=== PATIENT | female | born 1940 | race Caucasian/White ===

== ENCOUNTER 2018-07-28 12:16 | Inpatient (IN) | payer OTHER ==
[2018-07-28] VITALS (10 sets, daily range): BP systolic 112–129
[~2018-07-28] VITALS: Ht 149.9 cm; Wt 81.2 kg
[2018-07-28] MEDS ORDERED: NITROGLYCERIN 1 INCH (GM) OINT. TP ONE (12:45)
[2018-07-28] MEDS ORDERED: ASPIRIN 81 MG TAB.CHEW PO ONE (12:45)
[2018-07-28 13:24] LABS: BASOPHILS # (AUTO) 0.1 K/uL (0.0-0.2); EOSINOPHILS % (AUTO) 0.4 % (0.0-4.0); MEAN CORPUSCULAR HEMOGLOBIN 30 pg (27-31); MEAN CORPUSCULAR VOLUME 90 fL (79.0-98.0)
[2018-07-28 13:28] LABS: ANION GAP 10 (5-15); CHLORIDE 105 mmol/L (98-107); CREATININE 1.33 mg/dL (0.55-1.30); GLUCOSE 95 mg/dL (70-99); POTASSIUM 4.1 mmol/L (3.5-5.1); SODIUM SERUM 139 mmol/L (136-145); UREA NITROGEN, BLOOD 41 mg/dL (8-21)
[2018-07-28 13:30] LABS: PROTHROMBIN TIME 9.9 SECS (9.5-12.5)
[2018-07-28 13:34] LABS: ALANINE AMINOTRANSFERASE 81 U/L (12-78); ALBUMIN 3.6 g/dL (3.4-4.8); ASPARTATE AMINOTRANSFERASE 52 U/L (10-37); TOTAL BILIRUBIN 0.4 mg/dL (0.0-1.0)
[2018-07-28 13:36] LABS: BASOPHILS % (AUTO) 0.6 % (0.0-2.0); HEMATOCRIT 36.2 % (36-48); HEMOGLOBIN 12.2 g/dL (12.0-16.0); LYMPHOCYTES % (AUTO) 17.3 % (20.5-51.5); MEAN CORPUSCULAR HGB CONC 34 % (32-36); MONOCYTES % (AUTO) 5.9 % (1.7-9.3); NEUTROPHILS % (AUTO) 75.8 % (40.0-70.0); PLATELET COUNT (AUTO) 268 K/uL (130-430); RED BLOOD CELL COUNT(AUTO) 4.05 MIL/uL (4.2-6.2); RED CELL DISTRIBUTION WIDTH 12.8 % (9.0-15.0); WHITE BLOOD COUNT (AUTO) 9.4 K/uL (4.8-10.8)
[2018-07-28 13:37] LABS: LYMPHOCYTES # (AUTO) 1.6 K/uL (1.0-5.5); MONOCYTES # (AUTO) 0.6 K/uL (0.0-1.0); NEUTROPHILS # (AUTO) 7.1 K/uL (1.8-7.7)
[2018-07-28] MEDS ORDERED: NITROGLYCERIN 1 INCH (GM) OINT. ONE (13:48)
[2018-07-28] MEDS ORDERED: CEL20 PO (14:29)
[2018-07-28] MEDS ORDERED: LIP80 PO (14:29)
[2018-07-28] MEDS ORDERED: NOR10 PO (14:29)
[2018-07-28] MEDS ORDERED: ISOS30TA6 PO (14:29)
[2018-07-28] MEDS ORDERED: PANT20TA2 PO (14:29)
[2018-07-28] MEDS ORDERED: LOSA100T23 PO (14:29)
[2018-07-28] MEDS ORDERED: CLOP300T2 PO (14:29)
[2018-07-28] MEDS ORDERED: FUROSEMIDE 20 MG TABLET PO ONE (17:30)
[2018-07-28 23:46] LABS: BILIRUBIN,URINE NEGATIVE (NEGATIVE); BLOOD, URINE NEGATIVE (NEGATIVE); CLARITY/URINE CLEAR (CLEAR); COLOR,URINE YELLOW (YELLOW); GLUCOSE,URINE NEGATIVE (NEGATIVE); KETONES,URINE NEGATIVE (NEGATIVE); LEUKOCYTE ESTERASE ,URINE 1+ (NEGATIVE); NITRITE, URINE NEGATIVE (NEGATIVE); PROTEIN URINE NEGATIVE (NEGATIVE); UROBILINOGEN,URINE 0.2 (0.2-1.0)
[2018-07-29] VITALS (23 sets, daily range): BP systolic 108–148
[2018-07-29 00:14] LABS: BACTERIA,URINE FEW /HPF (None Seen); MUCUS,URINE None Seen /LPF (None Seen); RBC,URINE 0-3 /HPF (0-3); YEAST,URINE None Seen /HPF (None Seen)
[2018-07-29 05:42] LABS: ANION GAP 11 (5-15); CHLORIDE 106 mmol/L (98-107); CREATININE 1.15 mg/dL (0.55-1.30); GLUCOSE 96 mg/dL (70-99); POTASSIUM 4.1 mmol/L (3.5-5.1); SODIUM SERUM 142 mmol/L (136-145); UREA NITROGEN, BLOOD 39 mg/dL (8-21)
[2018-07-29 05:47] LABS: BASOPHILS % (AUTO) 0.2 % (0.0-2.0); EOSINOPHILS # (AUTO) 0.1 K/uL (0.0-0.4); EOSINOPHILS % (AUTO) 1.1 % (0.0-4.0); HEMATOCRIT 33.6 % (36-48); HEMOGLOBIN 11.3 g/dL (12.0-16.0); INR 1.1 (0.8-1.2); LYMPHOCYTES # (AUTO) 1.5 K/uL (1.0-5.5); LYMPHOCYTES % (AUTO) 20.8 % (20.5-51.5); MEAN CORPUSCULAR HEMOGLOBIN 31 pg (27-31); MEAN CORPUSCULAR HGB CONC 34 % (32-36); MEAN CORPUSCULAR VOLUME 92 fL (79.0-98.0); MONOCYTES # (AUTO) 0.5 K/uL (0.0-1.0); MONOCYTES % (AUTO) 7.7 % (1.7-9.3); NEUTROPHILS % (AUTO) 70.2 % (40.0-70.0); PLATELET COUNT (AUTO) 217 K/uL (130-430); RED BLOOD CELL COUNT(AUTO) 3.67 MIL/uL (4.2-6.2); RED CELL DISTRIBUTION WIDTH 12.5 % (9.0-15.0); WHITE BLOOD COUNT (AUTO) 7.1 K/uL (4.8-10.8)
[2018-07-29 05:58] LABS: ALANINE AMINOTRANSFERASE 63 U/L (12-78); ALBUMIN 3.3 g/dL (3.4-4.8); ASPARTATE AMINOTRANSFERASE 37 U/L (10-37); TOTAL BILIRUBIN 0.4 mg/dL (0.0-1.0)
[2018-07-29] MEDS: cefTRIAXone 1 GM in D5W 50 ML IV SCH (08:57)
[2018-07-29] MEDS: FUROSEMIDE 20 MG TABLET PO SCH (08:58)
[2018-07-29] MEDS ORDERED: POLYMYXIN 500,000/BACIT.10,000 UNITS in NS IRR 1 L IR ONE ×2 (13:57→16:26)
[2018-07-29] MEDS ORDERED: VANCOMYCIN HCL 1 GM/NS PREMIX 250 ML IV ONE (14:15)
[2018-07-29] MEDS ORDERED: IOHEXOL 0 ML IV ONE (15:10)
[2018-07-29] MEDS ORDERED: ONDANSETRON HCL 4 MG/2 ML VIAL IVP PRN (15:30)
[2018-07-29] MEDS ORDERED: fentaNYL CITRATE/PF 100 MCG/2 ML AMP IVP PRN ×2 (15:30)
[2018-07-29] MEDS ORDERED: VANCOMYCIN HCL 1 GM/NS PREMIX 250 ML IV SCH ×2 (21:00→23:00)
[2018-07-29] MEDS ORDERED: VANCOMYCIN HCL 1000 MG/VIAL IV ONE (21:33)
[2018-07-30] VITALS (18 sets, daily range): BP systolic 104–146
[2018-07-30] MEDS: cefTRIAXone 1 GM in D5W 50 ML IV SCH (08:17)
[2018-07-30] MEDS ORDERED: REGADENOSON 0.4 MG/5 ML SYRINGE IVP ONE (10:00)
[2018-07-30] MEDS: FUROSEMIDE 20 MG TABLET PO SCH (11:22)
[2018-07-31 01:23] VITALS: BP_SYST 126
[2018-07-31 08:01] VITALS: BP_SYST 115
[2018-07-31] MEDS: FUROSEMIDE 20 MG TABLET PO SCH (08:03)
[2018-07-31] MEDS: cefTRIAXone 1 GM in D5W 50 ML IV SCH (09:18)
[2018-07-31 12:03] VITALS: BP_SYST 129
[2018-07-31] MEDS ORDERED: VANCOMYCIN 1 GM/NS 250 ML PREMIX BAG IV ONE (14:30)
[2018-07-31] MEDS ORDERED: LR 1,000 ML IV.SOLN IV ONE (14:30)
[2018-07-31] MEDS ORDERED: MIDAZOLAM HCL 5 MG/5 ML VIAL IVP ONE (14:30)
[2018-07-31] MEDS ORDERED: LIDOCAINE 1% 10 MG/ML, 20 ML MDV INJ ONE (14:30)
[2018-07-31] MEDS ORDERED: PROPOFOL 200MG/ 20ML VIAL (DIPRIVAN) IV ONE (14:30)
[2018-07-31] MEDS ORDERED: BUPIVACAINE /EPINEPHRINE/PF 0.5% 30 ML VIAL INJ ONE (14:30)
[2018-07-31 16:31] VITALS: BP_SYST 121
[2018-07-31 20:04] VITALS: BP_SYST 137
[2018-08-01 00:12] VITALS: BP_SYST 132
[2018-08-01 08:07] VITALS: BP_SYST 103
[2018-08-01 08:09] VITALS: BP_SYST 103
[2018-08-01] MEDS: FUROSEMIDE 20 MG TABLET PO SCH (08:33)
== END 2018-08-01 09:40 | disposition short-term general hospital (02) | DRG 242 ==
LOC: SED 12:16 → SIC 14:33 → STU 07-30 16:46
PROVIDERS: ADMIT Internal Medicine Hospice and Palliative Medicine; ATTEND Internal Medicine Hospice and Palliative Medicine
PROC: 02HK3JZ Insertion of Pacemaker Lead into Right Ventricle, Percutaneous Approach (ICD-10-PCS; 2018-07-29)
PROC: 02H63JZ Insertion of Pacemaker Lead into Right Atrium, Percutaneous Approach (ICD-10-PCS; 2018-07-29)
PROC: 0JH606Z Insertion of Pacemaker, Dual Chamber into Chest Subcutaneous Tissue and Fascia, Open Approach (ICD-10-PCS; principal; 2018-07-29 14:00)
DX: I44.2 Atrioventricular block, complete (principal); I50.31 Acute diastolic (congestive) heart failure; N39.0 Urinary tract infection, site not specified; I50.9 Heart failure, unspecified; I11.0 Hypertensive heart disease with heart failure; I25.119 Atherosclerotic heart disease of native coronary artery with unspecified angina pectoris; E78.5 Hyperlipidemia, unspecified; K21.9 Gastro-esophageal reflux disease without esophagitis; I48.0 Paroxysmal atrial fibrillation; I48.2 Chronic atrial fibrillation; Z95.0 Presence of cardiac pacemaker; Z86.73 Personal history of transient ischemic attack (TIA), and cerebral infarction without residual deficits; Z90.710 Acquired absence of both cervix and uterus; Z79.899 Other long term (current) drug therapy
CPT/HCPCS: 36415; 71045; 76000; 80053; 81000-TC; 83880; 84484; 85025; 85610-TC; 87081; 93005; 93017; 93306; 99285; A4565; A9500; C1785; C1898; G0378; J0696; J2001; J2250; J2704; J2785; J3370; J3490; J7050; J7060; J7120; Q9967

== ENCOUNTER 2018-12-12 09:01 | Emergency (ER) | payer OTHER ==
[~2018-12-12] VITALS: Ht 149.9 cm; Wt 77.1 kg
[~2018-12-12 09:01] MED LIST: CEL20 PO; ISOS30TA6 PO; LIP80 PO; LOSA100T23 PO; PANT20TA2 PO
[2018-12-12 09:02] VITALS: BP_SYST 159
--- NOTE | 2018-12-12 09:02 | NUR ---
BROUGHT BACK TO BED #7 AND TRIAGED, REPORT GIVEN TO DELON
--- NOTE | 2018-12-12 09:30 | NUR ---
DR LIU AT BEDSIDE FOR EVALUATION
[2018-12-12] MEDS ORDERED: traMADol HCL HCL 50 MG TABLET (ULTRAM) PO ONE (09:45)
--- NOTE | 2018-12-12 09:45 | NUR ---
TAKEN TO RADIOLOGY VIA WHEELCHAIR.
--- NOTE | 2018-12-12 10:04 | NUR ---
Patient presented to ER with pain 7/ s/p fall. Patient alert and oriented, ambulatory, afebrile, skin pink, pain/. Patient states she fell at home 2 weeks ago picking up dog toys. patient states she has ahd bilat hip replacement, right side hip replacement x2.
--- NOTE | 2018-12-12 10:09 | NUR ---
Patient refused pain medication. Patient states pain 01/09. Patient states she has vicodin at home and she takes half a pill every other day
[2018-12-12 10:45] VITALS: BP_SYST 159
--- NOTE | 2018-12-12 10:45 | NUR ---
Patient given written and verbal discharge instructions and verbalizes understanding. ER MD discussed with patient the results and treatment provided. Patient in stable condition. ID arm band removed. No Rx given. Patient educated on pain management and to follow up with PMD. Pain Scale 7/10 tolerable for pt. Opportunity for questions provided and answered. Medication side effect fact sheet provided.
== END 2018-12-12 10:45 | disposition home or self-care (01) ==
LOC: SED 09:01
DX: S70.01XA Contusion of right hip, initial encounter (principal); Z86.73 Personal history of transient ischemic attack (TIA), and cerebral infarction without residual deficits; Z79.899 Other long term (current) drug therapy; W19.XXXA Unspecified fall, initial encounter; Y93.89 Activity, other specified; Y92.89 Other specified places as the place of occurrence of the external cause; Y99.8 Other external cause status
CPT/HCPCS: 72170-TC; 73552; 99283